=== PATIENT | female | born 1985 | race Caucasian/White ===

== ENCOUNTER 2016-09-03 01:15 | Emergency (ER) | payer OTHER ==
[2016-09-03 05:51] LABS: HEMOGLOBIN 13.6 gm/dl (12.3-15.3); RED BLOOD COUNT 4.25 M/UL (4.00-5.10); WHITE BLOOD COUNT 14.2 K/UL (4.5-11.0)
[2016-09-03 06:43] LABS: BUN/CREATININE RATIO 18 (0-10)
== END 2016-09-03 11:15 | disposition home or self-care (01) ==
LOC: ER1 01:15
PROVIDERS: Physician Assistant
DX: R10.13 Epigastric pain (principal); R10.11 Right upper quadrant pain; R10.12 Left upper quadrant pain; R11.2 Nausea with vomiting, unspecified; R07.9 Chest pain, unspecified; F17.210 Nicotine dependence, cigarettes, uncomplicated; Z88.5 Allergy status to narcotic agent
CPT/HCPCS: 36415; 71010; 80053; 81001; 83690; 84484; 84703; 85025; 87086; 93005; 96372; 96374; 96375; 96376; 99285; C9113; J0500; J2405; J2550; J7030; J7050; Q9962

== ENCOUNTER 2016-09-05 20:12 | Emergency (ER) | payer OTHER | END 2016-09-05 21:59 | disposition home or self-care (01) | LOC: ER1 20:12 | DX: Z53.21 Procedure and treatment not carried out due to patient leaving prior to being seen by health care provider (principal) | CPT/HCPCS: 81001; 84703; 99284 ==